=== PATIENT | male | born 1995 | race Caucasian/White ===

== ENCOUNTER 2019-03-29 14:39 | Emergency (ER) | payer BC, OTHER ==
[2019-03-29] MEDS ORDERED: Lidocaine 2% Viscous Solution 15 ML Cup PO ONE (15:17)
--- NOTE | 2019-03-29 15:17 | EDM.PDOC ---
ED HPI GENERAL MEDICAL PROBLEM - General Chief Complaint: ENT Problem Stated Complaint: TOOTHACHE Time Seen by Provider: 03/29/19 15:13 Source of Information: Reports: Patient History Limitations: Reports: No Limitations - History of Present Illness INITIAL COMMENTS - FREE TEXT/NARRATIVE: HISTORY AND PHYSICAL: History of present illness: Patient is a 23-year-old male who presents to the emergency room with complaints of dental pain 2 days. Patient reports that he has a known dental fracture to his posterior molar on the lower right side. He tried to call and get into a dentist but does not have an appointment until 03/31/19. Patient denies any fever, chills, headache, change in vision, syncope or near syncope. Denies any chest pain, back pain, shortness of breath or cough. Denies any abdominal pain, nausea, vomiting, diarrhea, constipation or dysuria. Has not noted any blood in urine or stool. Patient has been eating and drinking appropriately. Review of systems: As per history of present illness and below otherwise all systems reviewed and negative. Past medical history: As per history of present illness and as reviewed below otherwise noncontributory. Surgical history: As per history of present illness and as reviewed below otherwise noncontributory. Social history: See social history for further information Family history: As per history of present illness and as reviewed below otherwise noncontributory. Physical exam: General: Well-developed and well-nourished 23-year-old male. Alert and oriented. Nontoxic appearing and in no acute distress. HEENT: Atraumatic, normocephalic, pupils equal and reactive bilaterally, negative for conjunctival pallor or scleral icterus, mucous membranes moist, TMs normal bilaterally, throat clear, neck supple, nontender, trachea midline. Tooth #30 one appears to have an old fracture, at the dental decay noted and surrounding erythema and soft tissue swelling along the gumline. No drooling or trismus noted. No meningeal signs. No hot potato voice noted. Lungs: Clear to auscultation, breath sounds equal bilaterally, chest nontender. Heart: S1S2, regular rate and rhythm without overt murmur Skin: Intact, warm, dry. No lesions or rashes noted. Extremities: Atraumatic, moves all extremities per self without difficulty or deficits, negative for cords or calf pain. Neurovascular unremarkable. Neuro: Awake, alert, oriented. Cranial nerves II through XII unremarkable. Cerebellum unremarkable. Motor and sensory unremarkable throughout. Exam nonfocal. Notes: Supportive care measures were reviewed and discussed. Voices understanding and is agreeable to plan of care. Denies any further questions or concerns at this time. Diagnostics: None Therapeutics: Dental Balls Prescription: Clindamycin Tramadol (#10) Impression: Dental Abscess Plan: 1. Please take the antibiotic as prescribed. 2. Tylenol and/or ibuprofen as needed for pain management. "Tooth Balls" have been given to you; apply along the gumline every 2-3 hours as needed. Do not swallow these; external use only. Tramadol for moderate to severe pain. Do not take while driving or needing to be functioning outside the house. 3. Follow-up with a dentist for definitive care. Return to the ED as needed and as discussed. Definitive disposition and diagnosis as appropriate pending reevaluation and review of above. dental Pain Score (Numeric/FACES): 10 - Related Data Allergies Allergy/AdvReac Type Severity Reaction Status Date / Time No Known Allergies Allergy Verified 03/29/19 15:02 Home Meds: Home Meds . [No Known Home Meds] 03/29/19 [History] Past Medical History - Past Health History Medical/Surgical History: Denies Medical/Surgical History Social & Family History - Family History Family Medical History: Noncontributory - Tobacco Use Smoking Status *Q: Current Every Day Smoker Years of Tobacco use: 1 Packs/Tins Daily: 0.5 - Recreational Drug Use Recreational Drug Use: No ED ROS ENT - Review of Systems Review Of Systems: ROS reveals no pertinent complaints other than HPI. ED EXAM, ENT - Physical Exam Exam: See Below (See dictation) Course - Vital Signs Last Recorded V/S: Last Vital Signs Temp 97.9 F 03/29/19 15:00 Pulse 81 03/29/19 15:00 Resp 18 03/29/19 15:00 BP 118/67 03/29/19 15:00 Pulse Ox 97 03/29/19 15:00 Departure - Departure Time of Disposition: 15:17 Disposition: Home, Self-Care 01 Clinical Impression: Dental abscess - Discharge Information Instructions: Dental Abscess, [id number] Referrals: PCP,None [Primary Care Provider] - Additional Instructions: The following information is given to patients seen in the emergency department who are being discharged to home. This information is to outline your options for follow-up care. We provide all patients seen in our emergency department with a follow-up referral. The need for follow-up, as well as the timing and circumstances, are variable depending upon the specifics of your emergency department visit. If you don't have a primary care physician on staff, we will provide you with a referral. We always advise you to contact your personal physician following an emergency department visit to inform them of the circumstance of the visit and for follow-up with them and/or the need for any referrals to a consulting specialist. The emergency department will also refer you to a specialist when appropriate. This referral assures that you have the opportunity for follow-up care with a specialist. All of these measure are taken in an effort to provide you with optimal care, which includes your follow-up. Under all circumstances we always encourage you to contact your private physician who remains a resource for coordinating your care. When calling for follow-up care, please make the office aware that this follow-up is from your recent emergency room visit. If for any reason you are refused follow-up, please contact the [facility] at and asked to speak to the emergency department charge nurse. [facility] [address] [place] [address] [id number] [address] [address] 1. Please take the antibiotic as prescribed. 2. Tylenol and/or ibuprofen as needed for pain management. "Tooth Balls" have been given to you; apply along the gumline every 2-3 hours as needed. Do not swallow these; external use only. Tramadol for moderate to severe pain. Do not take while driving or needing to be functioning outside the house. 3. Follow-up with a dentist for definitive care. Return to the ED as needed and as discussed.
[2019-03-29] MEDS: Benzocaine 20% Topical Spray UD MUCMEM ONE (15:27)
== END 2019-03-29 15:30 | disposition home or self-care (01) ==
LOC: MW.ED 14:39
DX: K04.7 Periapical abscess without sinus (principal); F17.210 Nicotine dependence, cigarettes, uncomplicated
CPT/HCPCS: 99282; A9270

== ENCOUNTER 2019-04-17 03:55 | Emergency (ER) | payer OTHER ==
[2019-04-17] MEDS ORDERED: Ketorolac 60 MG/2 ML SDV IM ONE (04:20)
[2019-04-17] MEDS ORDERED: Benzocaine 20% Topical Spray UD MUCMEM ONE (04:20)
[2019-04-17] MEDS ORDERED: Lidocaine 2% Viscous Solution 15 ML Cup PO ONE (04:20)
--- NOTE | 2019-04-17 04:20 | EDM.PDOC ---
ED HPI GENERAL MEDICAL PROBLEM - General Chief Complaint: General Stated Complaint: AMB Time Seen by Provider: 04/17/19 04:16 Source of Information: Reports: Patient - History of Present Illness INITIAL COMMENTS - FREE TEXT/NARRATIVE: HISTORY AND PHYSICAL: History of present illness: [Patient presents with dental pain He is under the care of dentist practice, his aunt is a dentist practices through the office by Tammy, someone in her group has referred him to [facility] to the oral surgeon and he is scheduled there for Wednesday He has a right rear molar and severe decay, he has been provided clindamycin on the first of the month he has been taking these intermittently not as directed as they have been causing some stomach upset Dental balls have helped in the past Presents via ambulance due to pain Review of systems: As per history of present illness and below otherwise all systems reviewed and negative. Past medical history: As per history of present illness and as reviewed below otherwise noncontributory. Surgical history: As per history of present illness and as reviewed below otherwise noncontributory. Social history: No reported history of drug or alcohol abuse. Family history: As per history of present illness and as reviewed below otherwise noncontributory. Physical exam: HEENT: Atraumatic, normocephalic, pupils reactive, negative for conjunctival pallor or scleral icterus, mucous membranes moist, throat clear, neck supple, nontender, trachea midline. Dentition as above Lungs: Clear to auscultation, breath sounds equal bilaterally, chest nontender. Heart: S1S2, regular, negative for clicks, rubs, or JVD. Abdomen: Soft, nondistended, nontender. Negative for masses or hepatosplenomegaly. Negative for costovertebral tenderness. Pelvis: Stable nontender. Genitourinary: Deferred. Rectal: Deferred. Extremities: Atraumatic, negative for cords or calf pain. Neurovascular unremarkable. Neuro: Awake, alert, oriented. Cranial nerves II through XII unremarkable. Cerebellum unremarkable. Motor and sensory unremarkable throughout. Exam nonfocal. Diagnostics: [Clinical ] Therapeutics: [Toradol 60 IM [place] ] amoxicillin Impression: [ dental pain/and or abscess/ental caries definitive disposition and diagnosis as appropriate pending reevaluation and review of above. - Related Data Allergies Allergy/AdvReac Type Severity Reaction Status Date / Time No Known Allergies Allergy Verified 04/17/19 04:03 Home Meds: Home Meds Clindamycin HCl 300 mg PO TID 10 Days #30 capsule 03/29/19 [Rx] traMADol [Ultram] 50 mg PO Q4H PRN #10 tab 03/29/19 [Rx] Past Medical History - Past Health History Medical/Surgical History: Denies Medical/Surgical History HEENT History: Reports: None Cardiovascular History: Reports: None Respiratory History: Reports: None Gastrointestinal History: Reports: None Genitourinary History: Reports: None Musculoskeletal History: Reports: None Neurological History: Reports: None Psychiatric History: Reports: None Endocrine/Metabolic History: Reports: None Hematologic History: Reports: None Immunologic History: Reports: None Oncologic (Cancer) History: Reports: None Dermatologic History: Reports: None - Infectious Disease History Infectious Disease History: Reports: None - Past Surgical History Head Surgeries/Procedures: Reports: None Male Surgical History: Reports: None Social & Family History - Family History Family Medical History: Noncontributory - Tobacco Use Smoking Status *Q: Former Smoker Used Tobacco, but Quit: Yes Month/Year Tobacco Last Used: 02/27/19 - Caffeine Use Caffeine Use: Reports: None - Recreational Drug Use Recreational Drug Use: No ED ROS GENERAL - Review of Systems Review Of Systems: See Below ED EXAM, GENERAL - Physical Exam Exam: See Below Course - Vital Signs Last Recorded V/S: Last Vital Signs Temp 99.5 F 04/17/19 04:01 Pulse 97 04/17/19 04:01 Resp 18 04/17/19 04:01 BP 106/76 04/17/19 04:01 Pulse Ox 97 04/17/19 04:01 Departure - Departure Time of Disposition: :19 Disposition: Home, Self-Care 01 Condition: Good Clinical Impression: Pain due to dental caries, Dental abscess - Discharge Information Referrals: PCP,None [Primary Care Provider] - Additional Instructions: The following information is given to patients seen in the emergency department who are being discharged to home. This information is to outline your options for follow-up care. We provide all patients seen in our emergency department with a follow-up referral. The need for follow-up, as well as the timing and circumstances, are variable depending upon the specifics of your emergency department visit. If you don't have a primary care physician on staff, we will provide you with a referral. We always advise you to contact your personal physician following an emergency department visit to inform them of the circumstance of the visit and for follow-up with them and/or the need for any referrals to a consulting specialist. The emergency department will also refer you to a specialist when appropriate. This referral assures that you have the opportunity for follow-up care with a specialist. All of these measure are taken in an effort to provide you with optimal care, which includes your follow-up. Under all circumstances we always encourage you to contact your private physician who remains a resource for coordinating your care. When calling for follow-up care, please make the office aware that this follow-up is from your recent emergency room visit. If for any reason you are refused follow-up, please contact the [facility] emergency department at and asked to speak to the emergency department charge nurse.
== END 2019-04-17 04:40 | disposition home or self-care (01) ==
LOC: MW.ED 03:55
DX: K04.7 Periapical abscess without sinus (principal); K02.9 Dental caries, unspecified; Z87.891 Personal history of nicotine dependence
CPT/HCPCS: 96372; 99283; A9270; J1885

== ENCOUNTER 2019-04-18 13:38 | Emergency (ER) | payer OTHER ==
--- NOTE | 2019-04-18 14:06 | EDM.PDOC ---
ED HPI GENERAL MEDICAL PROBLEM - General Chief Complaint: ENT Problem Stated Complaint: TOOTH ACHE Time Seen by Provider: 04/18/19 14:05 Source of Information: Reports: Patient - History of Present Illness INITIAL COMMENTS - FREE TEXT/NARRATIVE: HISTORY AND PHYSICAL: History of present illness: [Patient presents with history of dental abscess he has been medication noncompliant with Cleocin as well as amoxicillin over the last month he was seen 3 weeks prior with dental abscess I saw 3 days prior encouraged him to take his medication has not done so he presents currently with drooling painful swallowing slightly muffled voice No fever vomiting chills sweats Review of systems: As per history of present illness and below otherwise all systems reviewed and negative. Past medical history: As per history of present illness and as reviewed below otherwise noncontributory. Surgical history: As per history of present illness and as reviewed below otherwise noncontributory. Social history: No reported history of drug or alcohol abuse. Family history: As per history of present illness and as reviewed below otherwise noncontributory. Physical exam: HEENT: Atraumatic, normocephalic, pupils reactive, negative for conjunctival pallor or scleral icterus, mucous membranes moist, throat clear, neck supple, nontender, trachea midline. moderate swelling right side of face dental abscess noted Lungs: Clear to auscultation, breath sounds equal bilaterally, chest nontender. Heart: S1S2, regular, negative for clicks, rubs, or JVD. Abdomen: Soft, nondistended, nontender. Negative for masses or hepatosplenomegaly. Negative for costovertebral tenderness. Pelvis: Stable nontender. Genitourinary: Deferred. Rectal: Deferred. Extremities: Atraumatic, negative for cords or calf pain. Neurovascular unremarkable. Neuro: Awake, alert, oriented. Cranial nerves II through XII unremarkable. Cerebellum unremarkable. Motor and sensory unremarkable throughout. Exam nonfocal. Diagnostics: [CBC BMP CT neck soft tissue with contrast ] Therapeutics: [Cleocin IV 300 mg Morphine 2 mg Normal saline ] Impression: Ludwigs angina Dental abscess right lower medicationcompliance ] Definitive disposition and diagnosis as appropriate pending reevaluation and review of above. right lower dental Pain Score (Numeric/FACES): 10 - Related Data Allergies Allergy/AdvReac Type Severity Reaction Status Date / Time No Known Allergies Allergy Verified 04/18/19 14:01 Home Meds: Home Meds Clindamycin HCl 300 mg PO TID 10 Days #30 capsule 03/29/19 [Rx] Past Medical History - Past Health History Medical/Surgical History: Denies Medical/Surgical History HEENT History: Reports: None Cardiovascular History: Reports: None Respiratory History: Reports: None Gastrointestinal History: Reports: None Genitourinary History: Reports: None Musculoskeletal History: Reports: None Neurological History: Reports: None Psychiatric History: Reports: None Endocrine/Metabolic History: Reports: None Hematologic History: Reports: None Immunologic History: Reports: None Oncologic (Cancer) History: Reports: None Dermatologic History: Reports: None - Infectious Disease History Infectious Disease History: Reports: None - Past Surgical History Head Surgeries/Procedures: Reports: None Male Surgical History: Reports: None Social & Family History - Family History Family Medical History: Noncontributory - Caffeine Use Caffeine Use: Reports: None ED ROS GENERAL - Review of Systems Review Of Systems: See Below ED EXAM, GENERAL - Physical Exam Exam: See Below Course - Vital Signs Last Recorded V/S: Last Vital Signs Temp 97.3 F 04/18/19 14:02 Pulse 117 H 04/18/19 14:02 Resp 18 04/18/19 14:02 BP 110/68 04/18/19 14:02 Pulse Ox 95 04/18/19 14:02 - Orders/Labs/Meds Orders: Active Orders 24 hr Category Date Time Status Clindamycin Phosphate [Cleocin] 300 mg Med 04/18/19 16:52 Active Sodium Chloride 0.9% [Normal Saline] 50 ml IV ONETIME Sodium Chloride 0.9% [Normal Saline] 1,000 ml Med 04/18/19 17:00 Active IV STAT Medication Orders Clindamycin Phosphate 300 mg/ (Sodium Chloride) 52 mls @ 100 mls/hr IV ONETIME ONE Stop: 04/18/19 17:23 Sodium Chloride (Normal Saline) 1,000 mls @ 125 mls/hr IV STAT LUIS Labs: Laboratory Tests 04/18/19 04/18/19 Range/Units 14:45 14:45 WBC 18.82 H (4.0-11.0) K/uL RBC 4.16 L (4.50-5.90) M/uL Hgb 12.5 L (13.0-17.0) g/dL Hct 36.4 L (38.0-50.0) % MCV 87.5 (80.0-98.0) fL MCH 30.0 (27.0-32.0) pg MCHC 34.3 (31.0-37.0) g/dL RDW Std Deviation 39.2 (28.0-62.0) fl RDW Coeff of Rommel 12 (11.0-15.0) % Plt Count 205 (150-400) K/uL MPV 10.00 (7.40-12.00) fL Add Manual Diff YES Neutrophils % (Manual) 80 (48.0-80.0) % Lymphocytes % (Manual) 8 L (16.0-40.0) % Monocytes % (Manual) 1 (0.0-15.0) % Eosinophils % (Manual) 1 (0.0-7.0) % Nucleated RBC % 0.0 /100WBC Absolute Seg Neuts 15.1 H (1.4-5.7) Lymphocytes # (Manual) 1.5 (0.6-2.4) Monocytes # (Manual) 0.2 (0.0-0.8) Eosinophils # (Manual) 0.2 (0.0-0.7) Nucleated RBCs # 0 K/uL Sodium 135 L (136-148) mmol/L Potassium 3.6 (3.5-5.1) mmol/L Chloride 99 (98-107) mmol/L Carbon Dioxide 23.7 (21.0-32.0) mmol/L BUN 14 (7.0-18.0) mg/dL Creatinine 1.0 (0.8-1.3) mg/dL Est Cr Clr Drug Dosing 104.96 mL/min Estimated GFR (MDRD) > 60.0 ml/min Glucose 107 H (74-106) mg/dL Calcium 8.7 (8.5-10.1) mg/dL Meds: Medications Generic Name Dose Route Start Last Admin Trade Name Freq PRN Reason Stop Dose Admin Clindamycin Phosphate 300 mg/ 52 mls @ 100 mls/hr 04/18/19 16:52 Sodium Chloride IV 04/18/19 17:23 ONETIME ONE Sodium Chloride 1,000 mls @ 125 mls/hr 04/18/19 17:00 Normal Saline IV STAT LUIS Discontinued Medications Generic Name Dose Route Start Last Admin Trade Name Freq PRN Reason Stop Dose Admin Dexamethasone 10 mg 04/18/19 16:54 Dexamethasone IVPUSH 04/18/19 16:55 ONETIME ONE Iopamidol 80 ml 04/18/19 16:15 04/18/19 16:16 Isovue Multipack-370 (76%) IVPUSH 04/18/19 16:16 80 ml ONETIME STA Administration Morphine Sulfate 2 mg 04/18/19 16:52 Morphine IVPUSH 04/18/19 16:53 ONETIME ONE Departure - Departure Time of Disposition: 16:58 Disposition: DC/Tfer to Acute Hospital 02 Condition: Fair Clinical Impression: Ludwigs angina - Discharge Information Referrals: PCP,Unknown [Primary Care Provider] - Forms: ED Department Discharge - My Orders Last 24 Hours: My Active Orders 04/18/19 16:52 Clindamycin Phosphate [Cleocin] 300 mg Sodium Chloride 0.9% [Normal Saline] 50 ml IV ONETIME 04/18/19 17:00 Sodium Chloride 0.9% [Normal Saline] 1,000 ml IV STAT - Assessment/Plan Last 24 Hours: My Active Orders 04/18/19 16:52 Clindamycin Phosphate [Cleocin] 300 mg Sodium Chloride 0.9% [Normal Saline] 50 ml IV ONETIME 04/18/19 17:00 Sodium Chloride 0.9% [Normal Saline] 1,000 ml IV STAT
[2019-04-18 15:27] LABS: CHLORIDE,CL 99 mmol/L (98-107); SODIUM,NA 135 mmol/L (136-148)
[2019-04-18] MEDS ORDERED: Iopamidol 755 MG/ML 200 ML Multipack Bottle IVPUSH STA (16:15)
--- NOTE | 2019-04-18 16:47 | CT ---
EXAMINATION: CT soft tissue neck with contrast HISTORY: Pain COMPARISON: None TECHNIQUE: Axial CT imaging obtained through the neck following the administration of 80 mL of Isovue-370 in the left antecubital fossa. Coronal and sagittal reconstructions obtained. FINDINGS: The left parotid gland is notably enlarged and heterogeneous in enhancement with likely dilated ducts. There is notable adjacent edema. There is also edema throughout the some lingual space extending to the right side. Prominent submandibular and upper cervical lymph nodes are also noted bilaterally. There is also moderate right peritonsillar edema with mild to moderate mass effect on the airway. Retropharyngeal space appears preserved. The jugular veins appear patent. Parotid glands appear normal. There is mild edema along the anterior soft tissues of the neck. Paranasal sinuses, middle ears, and mastoid air cells are clear. Orbits and globes are symmetric. The lung apices are clear. Visualized osseous structures appear normal. IMPRESSION: 1. Extensive submandibular and oropharyngeal cellulitis with likely early phlegmon. This extends throughout the sublingual space into the right peritonsillar region consistent with Alfred's angina. There is mild to moderate mass effect on the airway. 2. There is heterogeneous enhancement and fluid within the left submandibular gland consistent with a sialoadenitis. 3. Extensive lower facial and upper neck cellulitis.
[2019-04-18] MEDS ORDERED: Morphine 2 MG/ML Syringe IVPUSH ONE (16:52)
[2019-04-18] MEDS ORDERED: Dexamethasone 10 MG/ML SDV IVPUSH ONE (16:54)
[2019-04-18] MEDS ORDERED: Sodium Chloride 0.9% 1,000 ML IV SCH (17:00)
[2019-04-18] MEDS ORDERED: Clindamycin Phosphate in D5W 50 ML IV ONE (17:05)
== END 2019-04-18 17:30 ==
LOC: MW.ED 13:38
DX: K12.2 Cellulitis and abscess of mouth (principal)
CPT/HCPCS: 36415; 70491; 80048; 85025; 96374; 96375; 99285; J1100; J2270; J3490; J7050; Q9967

== ENCOUNTER 2019-08-11 23:47 | Emergency (ER) | payer OTHER ==
[2019-08-11] MEDS ORDERED: Ketorolac 60 MG/2 ML SDV IM ONE (23:59)
--- NOTE | 2019-08-12 00:03 | EDM.PDOC ---
ED HPI GENERAL MEDICAL PROBLEM - General Stated Complaint: CHEST PAIN Time Seen by Provider: 08/11/19 23:53 - History of Present Illness INITIAL COMMENTS - FREE TEXT/NARRATIVE: HISTORY AND PHYSICAL: History of present illness: The patient is a 24-year-old male who presents with complaints of one week of right-sided chest wall pain, where he points to underneath his armpit area, that is in worse the last 2 days. He says he has not had a fever chills cough runny nose or sore throat and no abdominal pain vomiting or diarrhea. He says that he hasn't had no direct trauma except that he did receive a very strong bearhug one week ago and it started hurting after that event. He says that movements and deep breaths will make it worse, he does not feel short of breath. He has no left-sided chest pain no back or flank pain and no other systemic issues. He has been eating and drinking normally and he does not smoke cigarettes. 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 He said he came in because at work he was exhibiting more discomfort and his employer thought he should be seen. Review of systems: As per history of present illness and below otherwise all systems reviewed and negative. Past medical history: As per history of present illness and as reviewed below otherwise noncontributory. Surgical history: As per history of present illness and as reviewed below otherwise noncontributory. Social history: No reported history of drug or alcohol abuse. Family history: As per history of present illness and as reviewed below otherwise noncontributory. Physical exam: General: Well-developed well-nourished thin man who is nontoxic and vital signs are noted by me. He is not breathless on my evaluation and is speaking clearly and easily. HEENT: Atraumatic, normocephalic, negative for conjunctival pallor or scleral icterus, mucous membranes moist, throat clear, neck supple, nontender, trachea midline. Lungs: Clear to auscultation, breath sounds equal bilaterally, chest on palpation of the anterior axillary area of the chest wall on the right there is tenderness which reproduces the pain but there is no defects deformities or crepitus appreciated and no erythema or ecchymosis. There is no wheezing or stridor area thank you Heart: S1S2, regular, negative for clicks, rubs, or JVD. Abdomen: Soft, nondistended, nontender. More specifically there is no right upper quadrant tenderness or flank tenderness Negative for masses or hepatosplenomegaly. Negative for costovertebral tenderness. Pelvis: Stable nontender. Genitourinary: Deferred. Rectal: Deferred. Extremities: Atraumatic, negative for cords or calf pain. Neurovascular unremarkable. No pedal edema or leg asymmetry Neuro: Awake, alert, oriented. Cranial nerves II through XII unremarkable. Cerebellum unremarkable. Motor and sensory unremarkable throughout. Exam nonfocal. Diagnostics: EKG, 2 view chest x-ray with expiratory view Therapeutics: Toradol Impression: Chest wall pain Definitive disposition and diagnosis as appropriate pending reevaluation and review of above. right chest Pain Score (Numeric/FACES): 8 - Related Data Allergies Allergy/AdvReac Type Severity Reaction Status Date / Time No Known Allergies Allergy Verified 08/12/19 00:05 Home Meds: Home Meds . [No Known Home Meds] 08/12/19 [History] Past Medical History - Past Health History Medical/Surgical History: Denies Medical/Surgical History HEENT History: Reports: None Cardiovascular History: Reports: None Respiratory History: Reports: None Gastrointestinal History: Reports: None Genitourinary History: Reports: None Musculoskeletal History: Reports: None Neurological History: Reports: None Psychiatric History: Reports: None Endocrine/Metabolic History: Reports: None Hematologic History: Reports: None Immunologic History: Reports: None Oncologic (Cancer) History: Reports: None Dermatologic History: Reports: None - Infectious Disease History Infectious Disease History: Reports: None - Past Surgical History Head Surgeries/Procedures: Reports: None Male Surgical History: Reports: None Social & Family History - Family History Family Medical History: Noncontributory - Caffeine Use Caffeine Use: Reports: None ED ROS GENERAL - Review of Systems Review Of Systems: ROS reveals no pertinent complaints other than HPI. ED EXAM, GENERAL - Physical Exam Exam: See Below (See dictation) Course - Vital Signs Last Recorded V/S: Last Vital Signs Temp 36.1 C 08/12/19 00:00 Pulse 63 08/12/19 00:00 Resp 18 08/12/19 00:00 BP 130/76 08/12/19 00:00 Pulse Ox 98 08/12/19 00:00 - Orders/Labs/Meds Orders: Active Orders 24 hr Category Date Time Status EKG Documentation Completion [RC] STAT Care 08/11/19 23:58 Active Meds: Medications Discontinued Medications Generic Name Dose Route Start Last Admin Trade Name Freq PRN Reason Stop Dose Admin Ketorolac Tromethamine 60 mg 08/11/19 23:59 08/12/19 00:29 Toradol IM 08/12/19 00:00 60 mg ONETIME ONE Administration Departure - Departure Time of Disposition: 00:33 Disposition: Home, Self-Care 01 Condition: Good Clinical Impression: Right-sided chest wall pain - Discharge Information Referrals: PCP,None [Primary Care Provider] - Additional Instructions: The following information is given to patients seen in the emergency department who are being discharged to home. This information is to outline your options for follow-up care. We provide all patients seen in our emergency department with a follow-up referral. The need for follow-up, as well as the timing and circumstances, are variable depending upon the specifics of your emergency department visit. If you don't have a primary care physician on staff, we will provide you with a referral. We always advise you to contact your personal physician following an emergency department visit to inform them of the circumstance of the visit and for follow-up with them and/or the need for any referrals to a consulting specialist. The emergency department will also refer you to a specialist when appropriate. This referral assures that you have the opportunity for followup care with a specialist. All of these measure are taken in an effort to provide you with optimal care, which includes your followup. Under all circumstances we always encourage you to contact your private physician who remains a resource for coordinating your care. When calling for followup care, please make the office aware that this follow-up is from your recent emergency room visit. If for any reason you are refused follow-up, please contact the [facility] emergency department at and ask to speak to the emergency department charge nurse. [facility] Primary care- [place] [address] Please take [id number]-inj-mreaxla ibuprofen, 3-4 tabs of the 200 mg every 6-8 hours , for the next 2 days to see if the pain improves and then take it just as needed. He may apply ice alternating with heat to the area as you choose for pain management. Please continue to monitor symptoms and connect with one of our clinic providers next week for further care and evaluation. Return to ER as needed and as discussed - My Orders Last 24 Hours: My Active Orders 08/11/19 23:58 EKG Documentation Completion [RC] STAT - Assessment/Plan Last 24 Hours: My Active Orders 08/11/19 23:58 EKG Documentation Completion [RC] STAT
--- NOTE | 2019-08-12 00:29 | CR ---
INDICATION: Chest pain, shortness of breath TECHNIQUE: Chest radiograph 2 views COMPARISON: 08/12/2019 FINDINGS: Mediastinum: The mediastinum is normal in appearance. The heart silhouette is normal in size and morphology. Lung: Both lungs are unremarkable in appearance. No sign of pleural effusion seen. No pneumothorax is identified. IMPRESSION: 1. No acute cardiopulmonary disease is seen. Dictated by: Dl Maldonado MD @ 08/12/2019 00:28:53 (Electronically Signed)
--- NOTE | 2019-08-12 00:31 | CR ---
INDICATION: Chest pain, shortness of breath TECHNIQUE: Chest radiograph 1 view expiration COMPARISON: None FINDINGS: Mediastinum: The mediastinum is normal in appearance. The heart silhouette is normal in size and morphology. Lung: Both lungs are unremarkable in appearance. No sign of pleural effusion seen. No pneumothorax is identified. IMPRESSION: 1. No acute cardiopulmonary disease is seen. Dictated by: Dl Maldonado MD @ 08/12/2019 00:29:33 (Electronically Signed)
== END 2019-08-12 00:45 | disposition home or self-care (01) ==
LOC: MW.ED 23:47
DX: R07.89 Other chest pain (principal)
CPT/HCPCS: 71045; 71046; 93005; 96372; 99285; J1885; 99282

== ENCOUNTER 2025-03-02 09:42 | Emergency (ER) | payer SELFPAY | END 2025-03-02 10:36 | disposition home or self-care (01) | LOC: MW.ED 09:42 | DX: K04.7 Periapical abscess without sinus (principal); Z79.899 Other long term (current) drug therapy; Z75.3 Unavailability and inaccessibility of health-care facilities | CPT/HCPCS: 99283 ==

== ENCOUNTER 2025-06-27 20:56 | Emergency (ER) | payer SELFPAY ==
[2025-06-27] MEDS: Acetaminophen/HYDROcodone 325-10 MG Tab PO STA (21:59)
[2025-06-27] MEDS: Amoxicillin/Clavulanate K 875-125 MG Tab PO ONE (21:59)
== END 2025-06-27 22:54 | disposition home or self-care (01) ==
LOC: MW.ED 20:56
DX: K04.7 Periapical abscess without sinus (principal); K02.9 Dental caries, unspecified; F17.210 Nicotine dependence, cigarettes, uncomplicated; Z79.899 Other long term (current) drug therapy
CPT/HCPCS: 99282; A9270; 99284

== ENCOUNTER 2025-09-10 06:24 | Emergency (ER) | payer SELFPAY ==
[2025-09-10] MEDS ORDERED: Sodium Chloride 0.9% 2.5 ML Syringe FLUSH PRN (06:58)
[2025-09-10] MEDS ORDERED: Sodium Chloride 0.9% 10 ML Syringe FLUSH PRN (06:58)
[2025-09-10 07:09] LABS: BASOPHILS ABSOLUTE AUTO 0.07 K/uL (0.00-0.20); BASOPHILS PERCENT AUTO 0.5 % (0.0-1.0); EOSINOPHILS ABSOLUTE AUTO 0.34 K/uL (0.00-0.45); EOSINOPHILS PERCENT AUTO 2.3 % (0.0-6.0); IMMATURE GRAN ABSOLUTE AUTO 0.05 K/uL (0.00-0.05); IMMATURE GRAN PERCENT AUTO 0.3 % (0.0-0.4); LYMPHOCYTES ABSOLUTE AUTO 1.56 K/uL (1.00-4.80); LYMPHOCYTES PERCENT AUTO 10.6 % (24.0-44.0); MEAN PLATELET VOLUME 9.9 fL (9.4-12.4); MONOCYTES ABSOLUTE AUTO 1.23 K/uL (0.00-0.80); MONOCYTES PERCENT AUTO 8.4 % (0.0-8.0); NEUTROPHILS ABSOLUTE AUTO 11.41 K/uL (1.80-7.70); NEUTROPHILS PERCENT AUTO 77.9 % (41.0-71.0); NRBC ABSOLUTE 0.00 K/uL (0.00-0.02); NRBC PERCENT 0.0 /100WBC (0.0-0.2); PLATELET COUNT,PLT 229 K/uL (150-400); RED BLOOD CELL COUNT 4.85 M/uL (4.52-5.90); WHITE BLOOD CELL COUNT,WBC 14.66 K/uL (3.9-11.3)
[2025-09-10 07:32] LABS: A/G RATIO 1.3 (0.9-1.6); ALANINE AMINOTRANSFERASE,ALT 17 IU/L (14-63); ASPARTATE AMNIOTRANSFERASE,AST 19 IU/L (15-37); BILIRUBIN TOTAL 0.9 mg/dL (0.2-1.0); BLOOD UREA NITROGEN,BUN 13 mg/dL (7.0-18.0); CARBON DIOXIDE,CO2 24.1 mmol/L (21.0-32.0); CHLORIDE,CL 102 mmol/L (98-107); CREATININE 0.9 mg/dL (0.8-1.3); GLUCOSE RANDOM 142 mg/dL (74-106); POTASSIUM,K 4.1 mmol/L (3.5-5.1); PROTEIN TOTAL,TP 7.4 g/dL (6.4-8.2); SODIUM,NA 138 mmol/L (136-148)
[2025-09-10] MEDS: Iopamidol 755 MG/ML 500 ML Multipack Bottle IVPUSH STA (07:33)
[2025-09-10 07:34] LABS: ESTIMATED GFR 119 mL/min (>60)
[2025-09-10 07:37] LABS: LACTIC ACID 0.6 mmol/L (0.4-2.0)
[2025-09-10] MEDS: Clindamycin Phosphate in D5W 900 MG in Premix Bag 1 BAG IV ONE (08:04)
[2025-09-10] MEDS: Amoxicillin/Clavulanate K 875-125 MG Tab PO ONE (09:28)
== END 2025-09-10 09:54 | disposition home or self-care (01) ==
LOC: MW.ED 06:24
DX: K04.7 Periapical abscess without sinus (principal); K02.9 Dental caries, unspecified; E86.0 Dehydration; F17.200 Nicotine dependence, unspecified, uncomplicated; Z79.899 Other long term (current) drug therapy
CPT/HCPCS: 36415; 70487; 80053; 83605; 83735; 85025; 96361; 96365; 99284; A9270; J0736; J7030; Q9967